=== PATIENT | male | born 1995 | race Two or more races ===

== ENCOUNTER 2024-05-05 16:04 | Outpatient (REF) | payer MEDICAID, SELFPAY ==
--- NOTE | ~2024-05-05 | XR_ITS ---
EXAMINATION: XR THORACOLUMBAR SPINE CLINICAL INFORMATION: Back pain COMPARISON: None available. TECHNIQUE: 2 views FINDINGS: Mild kyphosis noted but no fracture or destructive process. Vertebral body heights and disc space heights are preserved and the paraspinal soft tissues are normal. XR/XR thoracic spine 2V IMPRESSION: Unremarkable study.
--- NOTE | ~2024-05-05 | XR_ITS ---
EXAMINATION: XR HAND, BILATERAL CLINICAL INFORMATION: Joint pain COMPARISON: None available. TECHNIQUE: 3 views each hand FINDINGS: RIGHT: No acute visible fracture or dislocation. Slight negative ulnar variance. Joint spaces and alignment are maintained. Soft tissues are unremarkable. LEFT: No acute visible fracture or dislocation. Slight negative ulnar variance. Joint spaces and alignment are maintained. Soft tissues are unremarkable. XR/XR hand LT min 3V IMPRESSION: 1. No acute visible fracture or dislocation. 2. Bilateral slight negative ulnar variance.
--- NOTE | ~2024-05-05 | XR_ITS ---
EXAMINATION: XR HAND, BILATERAL CLINICAL INFORMATION: Joint pain COMPARISON: None available. TECHNIQUE: 3 views each hand FINDINGS: RIGHT: No acute visible fracture or dislocation. Slight negative ulnar variance. Joint spaces and alignment are maintained. Soft tissues are unremarkable. LEFT: No acute visible fracture or dislocation. Slight negative ulnar variance. Joint spaces and alignment are maintained. Soft tissues are unremarkable. XR/XR hand RT min 3V IMPRESSION: 1. No acute visible fracture or dislocation. 2. Bilateral slight negative ulnar variance.
[2024-05-05 18:20] LABS: Anion Gap 11 (12-20); Blood Urea Nitrogen 14 mg/dL (9-16); Calcium 9.5 mg/dL (8.4-10.2); Carbon Dioxide 31 mmol/L (22-29); Chloride 103 mmol/L (96-108); Estimated Glomerular Filt Rate > 60; Glucose Random 74 mg/dL (60-115); Potassium 4.3 mmol/L (3.3-5.1); Sodium 141 mmol/L (135-145)
== END 2024-05-05 16:05 | disposition home or self-care (01) ==
LOC: HO.HHCX 16:04
PROVIDERS: Visit Provider Nurse Practitioner
DX: G89.29 Other chronic pain (principal); M25.541 Pain in joints of right hand; M25.542 Pain in joints of left hand; M54.6 Pain in thoracic spine
CPT/HCPCS: 36415; 72070; 73130; 80048